=== PATIENT | male | born 1950 | race Caucasian/White ===

== ENCOUNTER 2017-12-03 11:04 | Observation (INO) | payer MEDICARE ==
[~2017-12-03] VITALS: Ht 180.3 cm; Wt 120.0 kg
[2017-12-03 11:09] VITALS: BP 132/76; PULSE 78; RESP 22; TEMP 97.3; O2SAT 98
--- NOTE | 2017-12-03 11:19 | PD ---
HPI Chief Complaint: Respiratory Symptoms Time Seen by Provider: 11:18 Travel History International Travel<30 days: No Contact w/Intl Traveler<30days: No Traveled to known affect area: No History of Present Illness HPI COUGH WITH GREEN SPUTUM, SHORTNESS OF BREATH WITH NAUSEA DECREASED APPETITE SINCE TUESDAY. SEEN BY PCP TUESDAY, RULED OUT FLU ON TUESDAY. About a week prior to the patient had been sick and the patient was evaluated on Tuesday and ruled out for flu. Following that 3 about 3 days afterwards patient started to develop the productive cough of greenish sputum associated with some dyspnea, and subjective fever. No alleviating or aggravating factors. Patient denies any associated factors such as headache, rash, neck pain, chest pain, abdominal pain, back pain, nausea, vomiting or diarrhea. No known drug allergy Past medical history significant with hypercholesterolemia, hypertension, diabetes. PFSH Past Medical History Diabetes: Yes Social History Tobacco Use: No Allergies-Medications (Allergen,Severity, Reaction): Coded Allergies: amoxicillin (Verified Allergy, Unknown, 12/03/17) Reported Meds & Prescriptions Reported Meds & Active Scripts Active Guaifenesin AC Liq (Guaifenesin-Codeine Liq) 100-10 Mg/5 Ml Syrp 10 Ml PO Q6H PRN Levaquin (Levofloxacin) 500 Mg Tablet 500 Mg PO DAILY 5 Days Reported Gabapentin 300 Mg Cap 600 Mg PO TID Victoza Inj (Liraglutide Inj) 18 Mg/3 Ml Pen 1.8 Mg SQ DAILY Lantus Solostar Pen Inj (Insulin Glargine) 300 Unit/3 Ml Pen 50 Units SQ BID IN THE AM & HS Fosinopril (Fosinopril Sodium) 40 Mg Tab 40 Mg PO DAILY Lovastatin 40 Mg Tab 40 Mg PO BID Allopurinol 300 Mg Tab 150 Mg PO TUESDAY Allopurinol 300 Mg Tab 300 Mg PO SUMOTUTHFRSA Take 1 tablet (300mg) daily on Tuesday,Tuesday,Tuesday,,Tuesday and Tuesday Metoprolol Tartrate 50 Mg Tab 50 Mg PO BID Hydrochlorothiazide 25 Mg Tab 25 Mg PO DAILY Farxiga (Dapagliflozin) 10 Mg Tab 10 Mg PO DAILY Glucophage (Metformin HCl) 1,000 Mg Tab 1,000 Mg PO BIDPC Review of Systems General / Constitutional: Positive: Fever, Chills Eyes: No: Visual changes HENT: No: Headaches Cardiovascular: No: Chest Pain or Discomfort Respiratory: Positive: Cough, Night Sweats Gastrointestinal: No: Abdominal Pain Genitourinary: No: Dysuria Musculoskeletal: No: Pain Skin: No Rash Neurologic: No: Weakness Psychiatric: No: Depression Endocrine: No: Polydipsia Hematologic/Lymphatic: No: Easy Bruising Physical Exam Narrative GENERAL: SKIN: Warm and dry. HEAD: Atraumatic. Normocephalic. EYES: Pupils equal and round. No scleral icterus. No injection or drainage. ENT: No nasal bleeding or discharge. Mucous membranes pink and moist. NECK: Trachea midline. No JVD. CARDIOVASCULAR: Regular rate and rhythm. RESPIRATORY: No accessory muscle use. Clear to auscultation. Breath sounds equal bilaterally except for right lower lobe abnormal sounds of wheezing and rhonchi GASTROINTESTINAL: Abdomen soft, non-tender, nondistended. MUSCULOSKELETAL: Extremities without clubbing, cyanosis, or edema. No obvious deformities. NEUROLOGICAL: Awake and alert. No obvious cranial nerve deficits. Motor grossly within normal limits. Five out of 5 muscle strength in the arms and legs. Normal speech. PSYCHIATRIC: Appropriate mood and affect; insight and judgment normal. Data Data Last Documented VS Vital Signs Date Time Temp Pulse Resp B/P (MAP) Pulse Ox O2 Delivery O2 Flow Rate FiO2 12/03/17 11:56 97 12/03/17 11:21 75 16 143/84 (103) Room Air 12/03/17 11:09 97.3 Orders Orders Complete Blood Count With Diff (12/03/17 11:27) Comprehensive Metabolic Panel (12/03/17 11:27) B-Type Natriuretic Peptide (12/03/17 11:27) Act Partial Throm Time (Ptt) (12/03/17 11:27) Prothrombin Time / Inr (Pt) (12/03/17 11:27) Ckmb (Isoenzyme) Profile (12/03/17 11:27) Troponin I (12/03/17 11:27) Urinalysis - C+S If Indicated (12/03/17 11:27) Blood Culture (12/03/17 11:27) Iv Access Insert/Monitor (12/03/17 11:27) Electrocardiogram (12/03/17 11:27) Ecg Monitoring (12/03/17 11:27) Oximetry (12/03/17 11:27) Oxygen Administration (12/03/17 11:27) Chest, Single Ap (12/03/17 11:27) Sodium Chloride 0.9% Flush (Ns Flush) (12/03/17 11:30) Levofloxacin (Levaquin) (12/03/17 11:45) CKMB (12/03/17 11:40) CKMB% (12/03/17 11:40) Admit Order (Ed Use Only) (12/03/17 15:42) Morphine Inj (Morphine Inj) (12/03/17 15:45) Ondansetron Inj (Zofran Inj) (12/03/17 15:45) Al-Mag Hy-Si 40-40-4 Mg/Ml Liq (Mag-Al P (12/03/17 15:45) Lidocaine 2% Viscous (Xylocaine 2% Visco (12/03/17 15:45) Aspirin Chew (Aspirin Chew) (12/03/17 15:45) Labs Laboratory Tests Test 12/03/17 11:40 White Blood Count 7.9 TH/MM3 Red Blood Count 5.27 MIL/MM3 Hemoglobin 15.6 GM/DL Hematocrit 45.0 % Mean Corpuscular Volume 85.3 FL Mean Corpuscular Hemoglobin 29.7 PG Mean Corpuscular Hemoglobin Concent 34.8 % Red Cell Distribution Width 14.6 % Platelet Count 204 TH/MM3 Mean Platelet Volume 8.5 FL Neutrophils (%) (Auto) 70.9 % Lymphocytes (%) (Auto) 18.1 % Monocytes (%) (Auto) 8.4 % Eosinophils (%) (Auto) 1.9 % Basophils (%) (Auto) 0.7 % Neutrophils # (Auto) 5.6 TH/MM3 Lymphocytes # (Auto) 1.4 TH/MM3 Monocytes # (Auto) 0.7 TH/MM3 Eosinophils # (Auto) 0.2 TH/MM3 Basophils # (Auto) 0.1 TH/MM3 CBC Comment DIFF FINAL Differential Comment Prothrombin Time 10.7 SEC Prothromb Time International Ratio 1.1 RATIO Activated Partial Thromboplast Time 25.4 SEC Blood Urea Nitrogen 19 MG/DL Creatinine 1.30 MG/DL Random Glucose 134 MG/DL Total Protein 8.3 GM/DL Albumin 4.0 GM/DL Calcium Level 9.5 MG/DL Alkaline Phosphatase 66 U/L Aspartate Amino Transf (AST/SGOT) 36 U/L Alanine Aminotransferase (ALT/SGPT) 38 U/L Total Bilirubin 0.8 MG/DL Sodium Level 132 MEQ/L Potassium Level 3.8 MEQ/L Chloride Level 99 MEQ/L Carbon Dioxide Level 21.3 MEQ/L Anion Gap 12 MEQ/L Estimat Glomerular Filtration Rate 55 ML/MIN Total Creatine Kinase 126 U/L Creatine Kinase MB 3.4 NG/ML Troponin I LESS THAN 0.02 NG/ML B-Type Natriuretic Peptide 12 PG/ML MDM Medical Decision Making Medical Screen Exam Complete: Yes Emergency Medical Condition: Yes Medical Record Reviewed: Yes Interpretation(s) EKG shows normal sinus rhythm, 66 bpm, nonspecific ST-T wave changes Differential Diagnosis Bronchitis versus pneumonia versus pleural effusion Narrative Course Regulation profile is within normal limits CBC shows no leukocytosis, no anemia, normal platelet count, and no left shift. Normal kidney, normal liver function, normal electrolytes, cardiac enzymes are negative Chest x-ray read by radiologist as no acute disease, there is no evidence of pneumonia. Just prior to discharge the patient came in and started to feel substernal to epigastric region discomfort, pressure, nonradiating, rated as an 8 out of 10, patient was visualized to be diaphoretic, and had a positive Bain sign clenching his fist against his chest. At this point although this was not with the patient originally came in complaining of, the patient was believed to be had be having a cardiac event, so decision was made to have the patient have a repeat EKG and be admitted to chest pain center. Diagnosis Primary Impression: Chest pain rule out [place] Admitting Information Admitting Physician Requests: Observation Patient Instructions: General Instructions Scripts Guaifenesin-Codeine Liq (Guaifenesin AC Liq) 100-10 Mg/5 Ml Syrp 10 ML PO Q6H Y for COUGH, #180 ML 0 Refills Prov: Waqas Campuzano MD 12/03/17 Levofloxacin (Levaquin) 500 Mg Tablet 500 MG PO DAILY for Infection for 5 Days, #5 TAB 0 Refills Prov: Waqas Campuzano MD 12/03/17 Condition: Stable Waqas Campuzano MD Dec 03, 2017 11:19
[2017-12-03 11:21] VITALS: BP 143/84; PULSE 75; RESP 16; O2SAT 95
[2017-12-03] MEDS ORDERED: GLUC1000 PO (11:28)
[2017-12-03] MEDS ORDERED: DAPA1TAB3 PO (11:28)
[2017-12-03] MEDS ORDERED: SODIUM CHLORIDE 0.9% FLUSH 10 ML FLUSH IVF PRN (11:30)
[2017-12-03] MEDS ORDERED: LEVOFLOXACIN 750 MG TAB PO ONE (11:45)
[2017-12-03 11:54] LABS: AUTOMATED NEUTROPHIL # 5.6 TH/MM3 (1.8-7.7); BASOPHIL # 0.1 TH/MM3 (0-0.2); BASOPHIL % 0.7 % (0.0-2.0); EOSINOPHIL # 0.2 TH/MM3 (0-0.4); EOSINOPHIL % 1.9 % (0.0-4.0); HEMOGLOBIN 15.6 GM/DL (13.0-17.0); LYMPH % 18.1 % (9.0-44.0); LYMPHOCYTE # 1.4 TH/MM3 (1.0-4.8); MEAN CELL VOLUME 85.3 FL (80.0-100.0); MEAN CORPUSCULAR HEMOGLOBIN 29.7 PG (27.0-34.0); MEAN CORPUSCULAR HGB CONC 34.8 % (32.0-36.0); MEAN PLATELET VOLUME 8.5 FL (7.0-11.0); MONO % 8.4 % (0.0-8.0); MONOCYTE # 0.7 TH/MM3 (0-0.9); NEUT % 70.9 % (16.0-70.0); PLATELET COUNT 204 TH/MM3 (150-450); RED BLOOD COUNT 5.27 MIL/MM3 (4.50-5.90); RED CELL DISTRIBUTION WIDTH 14.6 % (11.6-17.2); WHITE BLOOD COUNT 7.9 TH/MM3 (4.0-11.0)
--- NOTE | 2017-12-03 11:59 | RADRPT ---
EXAM DATE/TIME: 12/03/2017 11:41 [facility] COMPARISON: No previous studies available for comparison. INDICATIONS : Short of breath. Flu like symptoms. MEDICAL HISTORY : None. SURGICAL HISTORY : None. ENCOUNTER: Initial ACUITY: 1 week PAIN SCORE: 0/10 LOCATION: Bilateral chest FINDINGS: A single view of the chest demonstrates the lungs to be symmetrically aerated without evidence of mas s, infiltrate or effusion. The cardiomediastinal contours are unremarkable. Osseous structures are intact. CONCLUSION: No acute disease. There is no evidence of pneumonia. Emile Nichole MD on December 03, 2017 at 11:57 Board Certified Radiologist. This report was verified electronically.
[2017-12-03 12:06] LABS: INTERNATIONAL NORMALIZED RATIO 1.1 RATIO; PROTHROMBIN TIME - PATIENT 10.7 SEC (9.8-11.6)
[2017-12-03 12:17] LABS: AST (GOT) 36 U/L (15-37); BICARBONATE 21.3 MEQ/L (21.0-32.0); BLOOD UREA NITROGEN 19 MG/DL (7-18); CALCIUM 9.5 MG/DL (8.5-10.1); CHLORIDE 99 MEQ/L (98-107); GLOMERULAR FILTRATION RATE 55 ML/MIN (>89); GLUCOSE,RANDOM 134 MG/DL (74-106); SODIUM (NA) 132 MEQ/L (136-145)
[2017-12-03 12:18] LABS: ALT (GPT) 38 U/L (12-78)
[2017-12-03 12:23] LABS: ALKALINE PHOSPHATASE 66 U/L (45-117); TOTAL BILIRUBIN ADULT 0.8 MG/DL (0.2-1.0); TOTAL PROTEIN 8.3 GM/DL (6.4-8.2); TROPONIN I LESS THAN 0.02 NG/ML (0.02-0.05)
[2017-12-03] MEDS ORDERED: LANTINJ SQ (12:40)
[2017-12-03] MEDS ORDERED: HYDR25TA5 PO (12:40)
[2017-12-03] MEDS ORDERED: LOVA40TA PO (12:40)
[2017-12-03] MEDS ORDERED: GABA300C5 PO (12:40)
[2017-12-03] MEDS ORDERED: FOSI40TA PO (12:40)
[2017-12-03] MEDS ORDERED: ALLO300T2 PO ×2 (12:40)
[2017-12-03] MEDS ORDERED: METO50TA PO (12:40)
[2017-12-03] MEDS ORDERED: VICT18IN SQ (12:40)
[2017-12-03] MEDS ORDERED: GUAISYP4 PO (13:22)
[2017-12-03] MEDS ORDERED: LEVA500T33 PO (13:22)
--- NOTE | 2017-12-03 13:53 | EKG ---
Date Performed: 12/03/2017 Time Performed: 12:06:30 PTAGE: 67 years EKG: Sinus rhythm NONSPECIFIC T-WAVE ABNORMALITY BORDERLINE ECG NO PREVIOUS TRACING DOCTOR: Osiel Echols Interpretating Date/Time 12/03/2017 13:52:06
[2017-12-03] MEDS ORDERED: ALUMINUM/MAGNESIUM/SIMETH 30 ML CUP PO ONE (15:45)
[2017-12-03] MEDS ORDERED: MORPHINE SULFATE 4 MG/ML INJ IV PUSH ONE (15:45)
[2017-12-03] MEDS ORDERED: ONDANSETRON HCL 4 MG/2 ML VIAL IVP ONE (15:45)
[2017-12-03] MEDS ORDERED: LIDOCAINE VISCOUS 2% SOLN 15 ML UDC PO ONE (15:45)
[2017-12-03] MEDS ORDERED: ASPIRIN 81 MG CHEW TAB PO ONE (15:45)
[2017-12-03] MEDS ORDERED: IOHEXOL 350 MG/ML 50 ML BTL (for Cath Lab) OTHER ONE (15:46)
[2017-12-03 16:03] VITALS: BP 157/80; PULSE 72; RESP 30; O2SAT 97
--- NOTE | 2017-12-03 17:04 | HHI.HP ---
HPI Primary Care Physician Amrit Mcfarland MD Chief Complaint Flu like symptoms, nausea, dyspnea History of Present Illness 67 year old male with long standing history of type II diabetes and diabetic neuropathy presents to ER for further evaluation of dyspnea and flu like symptoms. Onset one week ago. Seen and evaluated by his PCP on Tuesday and tested negative for the flu. Endorses productive cough with green sputum. Tuesday developed dyspnea and epigastric discomfort, described as "a gas bubble." Came to ER for further evaluation and was going to be discharge home with antibiotics and guaifenesin this afternoon, before developing epigastric discomfort, dyspnea, and became diaphoresis therefore ER MD recommended admission to [facility]. Patient endorses intermittent epigastric pain and dyspnea since Tuesday. Location epigastric area. Characterized as ingestion or "gas bubble." Reports "feels like if I could belch I would feel better." Associated symptoms of dyspnea. No nausea, vomiting, or diaphoresis. Duration 5 minutes of less. Denies ever having chest pain or pressure. No known precipitating. Took Zantac yesterday. Zantac relieved symptoms, allowing him to eat. Review of Systems General: Flu like symptoms since Tuesday with malaise. Rapid flu test completed Tuesday at PCP office and was negative. Decrease appetite. HEENT: No BOOGIE, no vision changes, no dysphasia CV: As stated above. No current CP, pressure, or tightness. RESP: Productive cough, reports green sputum. Intermittent dyspnea since Tuesday. No wheeze, hemoptysis, or history of asthma. Diagnosed in ER with Acute Bronchitis. GI: Nausea improved. No vomiting, bowel changes, diarrhea, pain. Decreased appetite. History of GERD. Took Zantac yesterday with relief of symptoms, allowing him to eat. : No dysuria, urgency, frequency EXT: No lower leg edema, no paraesthesias MS: No discomfort or change in ROM NEURO: No difficulty with balance, LOC, motor/sensory deficits PSYCH: No anxiety, depression SKIN: No rashes, no concerning lesions Past Family Social History Allergies: Coded Allergies: amoxicillin (Verified Allergy, Unknown, 12/03/17) Past Medical History Type 2 diabetes, diabetic neuropathy, GERD, gout Past Surgical History Left ankle surgery, left elbow surgery Reported Medications Reported Meds & Active Scripts Active Guaifenesin AC Liq (Guaifenesin-Codeine Liq) 100-10 Mg/5 Ml Syrp 10 Ml PO Q6H PRN Levaquin (Levofloxacin) 500 Mg Tablet 500 Mg PO DAILY 5 Days Reported Gabapentin 300 Mg Cap 600 Mg PO TID Victoza Inj (Liraglutide Inj) 18 Mg/3 Ml Pen 1.8 Mg SQ DAILY Lantus Solostar Pen Inj (Insulin Glargine) 300 Unit/3 Ml Pen 50 Units SQ BID IN THE AM & HS Fosinopril (Fosinopril Sodium) 40 Mg Tab 40 Mg PO DAILY Lovastatin 40 Mg Tab 40 Mg PO BID Allopurinol 300 Mg Tab 150 Mg PO TUESDAY Allopurinol 300 Mg Tab 300 Mg PO SUMOTUTHFRSA Take 1 tablet (300mg) daily on Tuesday,Tuesday,Tuesday,,Tuesday and Tuesday Metoprolol Tartrate 50 Mg Tab 50 Mg PO BID Hydrochlorothiazide 25 Mg Tab 25 Mg PO DAILY Farxiga (Dapagliflozin) 10 Mg Tab 10 Mg PO DAILY Glucophage (Metformin HCl) 1,000 Mg Tab 1,000 Mg PO BIDPC Active Ordered Medications Current Medications Medications (Trade) Dose Ordered Sig/Epifanio Route Start Time Stop Time Status Last Admin (NS Flush) 2 ml UNSCH PRN IVF 12/03/17 11:30 Family History Noncontributory for early onset cardiovascular disease Social History Known diabetes. Appropriately taking statin and JAME inhibitor. No known CAD. Former smoker quitting 30 years ago. . Retired. Past cardiac testing None Physical Exam Vital Signs Vital Signs Date Time Temp Pulse Resp B/P (MAP) Pulse Ox O2 Delivery O2 Flow Rate FiO2 12/03/17 16:32 17 12/03/17 16:03 72 30 157/80 (105) 97 2.00 12/03/17 11:56 97 12/03/17 11:21 75 16 143/84 (103) 95 Room Air 12/03/17 11:21 22 96 Room Air 12/03/17 11:09 97.3 78 22 132/76 (94) 98 Physical Exam GENERAL: Alert WN, WD, NAD, pleasant, moderately obese, male HEAD: NC, AT EYES: Sclera clear, conjunctiva without injection, pupils equal and round ENT: Mucous membranes pink and moist NECK: Supple, no masses, trachea midline CV: RRR, without murmur, rub, gallop, no JVD, S1-S2 no S3-S4. No carotid bruits. RESP: Clear lungs throughout bilateral, no crackles, wheeze, rhonchi, symmetrical chest rise, nonlabored, able to speak in full sentences ABD: Soft, NT, ND, no masses, positive bowel tones, obese EXT: Pulses +24, no dependent edema MS: Normal tone 4 extremities, no obvious deformities, full range of motion NEURO: CN II through CN XII grossly intact, motor strength 5/5 PSYCH: A+O 3, pleasant affect, appropriate speech, mood, insight and judgment SKIN: Normal turgor, normal texture, no lesions, no rashes, brisk cap refill, even hair distribution Laboratory Laboratory Tests Test 12/03/17 11:40 White Blood Count 7.9 Red Blood Count 5.27 Hemoglobin 15.6 Hematocrit 45.0 Mean Corpuscular Volume 85.3 Mean Corpuscular Hemoglobin 29.7 Mean Corpuscular Hemoglobin Concent 34.8 Red Cell Distribution Width 14.6 Platelet Count 204 Mean Platelet Volume 8.5 Neutrophils (%) (Auto) 70.9 Lymphocytes (%) (Auto) 18.1 Monocytes (%) (Auto) 8.4 Eosinophils (%) (Auto) 1.9 Basophils (%) (Auto) 0.7 Neutrophils # (Auto) 5.6 Lymphocytes # (Auto) 1.4 Monocytes # (Auto) 0.7 Eosinophils # (Auto) 0.2 Basophils # (Auto) 0.1 CBC Comment DIFF FINAL Differential Comment Prothrombin Time 10.7 Prothromb Time International Ratio 1.1 Activated Partial Thromboplast Time 25.4 Blood Urea Nitrogen 19 Creatinine 1.30 Random Glucose 134 Total Protein 8.3 Albumin 4.0 Calcium Level 9.5 Alkaline Phosphatase 66 Aspartate Amino Transf (AST/SGOT) 36 Alanine Aminotransferase (ALT/SGPT) 38 Total Bilirubin 0.8 Sodium Level 132 Potassium Level 3.8 Chloride Level 99 Carbon Dioxide Level 21.3 Anion Gap 12 Estimat Glomerular Filtration Rate 55 Total Creatine Kinase 126 Creatine Kinase MB 3.4 Troponin I LESS THAN 0.02 B-Type Natriuretic Peptide 12 Date/Time Source Procedure Growth Status 12/03/17 11:41 Blood Peripheral Aerobic Blood Culture Pending Received 12/03/17 11:41 Blood Peripheral Anaerobic Blood Culture Pending Received Result Diagram: 12/03/17 1140 12/03/17 1140 Imaging Last 48 hours Impressions Chest X-Ray 12/03/17 1127 Signed Impressions: Service Date/Time: Sunday, December 03, 2017 11:41 - CONCLUSION: No acute disease. There is no evidence of pneumonia. Emile Nichole MD Course EKG Normal sinus rhythm, nonspecific T-wave changes [place] VTE Risk Assessment Caprini VTE Risk Assessment: Mod/High Risk (score >= 2) Caprini Risk Assessment Model Point Value = 1 Point Value = 2 Point Value = 3 Point Value = 5 Age 41-60 Minor surgery BMI > 25 kg/m2 Swollen legs Varicose veins or History of unexplained or recurrent spontaneous Oral contraceptives or hormone replacement Sepsis (< 1 month) Serious lung disease, including pneumonia (< 1 month) Abnormal pulmonary function Acute myocardial infarction Congestive heart failure (< 1 month) History of inflammatory bowel disease Medical patient at bed rest Age 61-74 Arthroscopic surgery Major open surgery (> 45 min) Laparoscopic surgery (> 45 min) Malignancy Confined to bed (> 72 hours) Immobilizing plaster cast Central venous access Age >= 75 History of VTE Family history of VTE Factor V Leiden Prothrombin 42201G Lupus anticoagulant Anticardiolipin antibodies Elevated serum homocysteine Heparin-induced thrombocytopenia Other congenital or acquired thrombophilia Stroke (< 1 month) Elective arthroplasty Hip, pelvis, or leg fracture Acute spinal cord injury (< 1 month) Prophylaxis Regimen Total Risk Factor Score Risk Level Prophylaxis Regimen 0-1 Low Early ambulation 2 Moderate Order ONE of the following: *Sequential Compression Device (SCD) *Heparin 5000 units SQ BID 3-4 Higher Order ONE of the following medications: *Heparin 5000 units SQ TID *Enoxaparin/Lovenox 40 mg SQ daily (WT < 150 kg, CrCl > 30 mL/min) *Enoxaparin/Lovenox 30 mg SQ daily (WT < 150 kg, CrCl > 10-29 mL/min) *Enoxaparin/Lovenox 30 mg SQ BID (WT < 150 kg, CrCl > 30 mL/min) AND/OR *Sequential Compression Device (SCD) 5 or more Highest Order ONE of the following medications: *Heparin 5000 units SQ TID (Preferred with Epidurals) *Enoxaparin/Lovenox 40 mg SQ daily (WT < 150 kg, CrCl > 30 mL/min) *Enoxaparin/Lovenox 30 mg SQ daily (WT < 150 kg, CrCl > 10-29 mL/min) *Enoxaparin/Lovenox 30 mg SQ BID (WT < 150 kg, CrCl > 30 mL/min) AND *Sequential Compression Device (SCD) Assessment and Plan Assessment and Plan #1 Chest pain-admitted chest pain center. Ruled out with 3 sets of EKGs, cardiac enzymes, and monitored on telemetry overnight. Seen and evaluated by Dr. Brent Marino. If ruled out plan is to complete Lexiscan in a.m. If unremarkable, discharge home with follow-up with PCP. Patient and agreeable to plan of care and verbalized understanding. #2 History of diabetes type II-hold home insulin and anti-glycemic at this time , NPO after midnight. SSI moderate dose coverage protocol. Continue JAME and statin therapies. #3 GERD-received GI cocktail in ER with relief, begin Protonix 40 mg daily #4 Acute Bronchitis-continue levofloxacin and guaifenesin/codeine, home prescriptions previously written by ER MD #5 History of neuropathy-continue gabapentin, discussed speaking with PCP pankajing Lizette Orlando Dec 03, 2017 17:04
[2017-12-03] MEDS ORDERED: guaiFENesin/CODEINE SYRUP 200 MG/20 MG/10 ML CUP PO PRN (17:15)
[2017-12-03] MEDS ORDERED: NITROGLYCERIN 0.4 MG SL 25 TABS/BTL SL PRN (17:15)
[2017-12-03] MEDS ORDERED: GLUCAGON 1 MG/ML VIAL OTHER PRN (17:15)
[2017-12-03] MEDS ORDERED: ACETAMINOPHEN 500 MG CPLT PO PRN (17:15)
[2017-12-03] MEDS ORDERED: DEXTROSE 50% IN WATER 50 ML VIAL(D50) IV PUSH PRN (17:15)
[2017-12-03] MEDS ORDERED: RESP: ALBUTEROL 2.5 MG/3 ML NEB (PRN) NEB (17:15)
[2017-12-03] MEDS: GABAPENTIN 300 MG CAP PO SCH (18:00)
[2017-12-03 18:19] LABS: TROPONIN I LESS THAN 0.02 NG/ML (0.02-0.05)
[2017-12-03] MEDS ORDERED: RANITIDINE HCL SYRUP 150 MG/10 ML UDC PO ONE (19:00)
[2017-12-03] MEDS: PANTOPRAZOLE SOD 40 MG DELAYED RELEASE TAB PO SCH (19:00)
[2017-12-03] MEDS: INSULIN ASPART SUPPLEMENTAL SCALE SQ SCH (20:30)
[2017-12-03 20:41] VITALS: BP 132/71; PULSE 92; RESP 18; TEMP 97.9; O2SAT 94
[2017-12-03 20:51] LABS: TROPONIN I LESS THAN 0.02 NG/ML (0.02-0.05)
[2017-12-03] MEDS: SODIUM CHLORIDE 0.9% FLUSH 10 ML FLUSH IV FLUSH SCH (22:29)
[2017-12-03] MEDS: PRAVASTATIN SOD 40 MG TAB PO SCH (22:29)
[2017-12-03] MEDS: METOPROLOL TARTRATE 50 MG TAB PO SCH (22:30)
[2017-12-03 23:05] VITALS: BP 131/77; PULSE 72; RESP 18; TEMP 98.1; O2SAT 97
[2017-12-04] VITALS (11 sets, daily range): BP systolic 97–131; BP diastolic 56–82; PULSE 65–85; RESP 18–36; TEMP 97.6–98.2; O2SAT 96–100
[2017-12-04] MEDS: INSULIN ASPART SUPPLEMENTAL SCALE SQ SCH ×4 (08:30→21:00)
[2017-12-04] MEDS: SODIUM CHLORIDE 0.9% FLUSH 10 ML FLUSH IV FLUSH SCH ×2 (08:40→21:02)
[2017-12-04] MEDS: ONDANSETRON HCL 4 MG/2 ML VIAL IV PUSH PRN ×2 (08:41→11:54)
[2017-12-04] MEDS: GABAPENTIN 300 MG CAP PO SCH ×3 (08:41→17:54)
[2017-12-04] MEDS: ASPIRIN 325 MG TAB PO SCH (08:41)
[2017-12-04] MEDS: ALLOPURINOL 300 MG TAB PO SCH (08:42)
[2017-12-04] MEDS: PRAVASTATIN SOD 40 MG TAB PO SCH ×2 (08:42→21:16)
[2017-12-04] MEDS: PANTOPRAZOLE SOD 40 MG DELAYED RELEASE TAB PO SCH (08:42)
[2017-12-04] MEDS: METOPROLOL TARTRATE 50 MG TAB PO SCH (08:43)
[2017-12-04] MEDS: LEVOFLOXACIN 500 MG TAB PO SCH (08:45)
[2017-12-04] MEDS ORDERED: LISINOPRIL 20 MG TAB PO SCH (09:00)
[2017-12-04] MEDS ORDERED: HYDROCHLOROTHIAZIDE 25 MG TAB PO SCH (09:00)
--- NOTE | 2017-12-04 11:32 | EKG ---
Date Performed: 12/03/2017 Time Performed: 20:06:25 PTAGE: 67 years EKG: Sinus rhythm WITH FIRST DEGREE AV BLOCK NONSPECIFIC ST & T-WAVE ABNORMALITY ABNORMAL ECG INTERPRETATION BASED ON A DEFAULT AGE OF 40 YEARS PREVIOUS TRACING : 12/03/2017 17.49 Since previous tracing, no significant change noted DOCTOR: Brent Marino Interpretating Date/Time 12/04/2017 11:31:31
--- NOTE | 2017-12-04 11:38 | EKG ---
Date Performed: 12/03/2017 Time Performed: 17:49:40 PTAGE: 67 years EKG: Sinus rhythm MINIMAL VOLTAGE CRITERIA FOR LVH, CONSIDER NORMAL VARIANT NONSPECIFIC ST & T-WAVE ABNORMALITY BORDER LINE ECG PREVIOUS TRACING : 12/03/2017 12.06 Since previous tracing, no significant change noted DOCTOR: Brent Marino Interpretating Date/Time 12/04/2017 11:36:04
[2017-12-04] MEDS ORDERED: LORazepam 2 MG/ML VIAL IV PUSH ONE (12:30)
[2017-12-04] MEDS ORDERED: REGADENOSON INJ 0.4 MG/5 ML SYR ONE (14:14)
--- NOTE | 2017-12-04 15:08 | RADRPT ---
EXAM DATE/TIME: 12/04/2017 13:59 [facility] COMPARISON: No previous studies available for comparison. INDICATIONS : Chest pain with dyspnea and diaphoresis. Angina. DOSE: 35 mCi Tc99m Myoview at stress. 11 mCi Tc99m Myoview at rest. 0.4 mg Lexiscan STRESS SYMPTOMS: None noted. EJECTION FRACTION: 66% MEDICAL HISTORY : Diabetes mellitus type 2. Gastroesophageal reflux disease. SURGICAL HISTORY : Left ankle and elbow. ENCOUNTER: Initial ACUITY: 1 day PAIN SCALE: 4/10 LOCATION: Substernal chest TECHNIQUE: The patient underwent pharmacologic stress with infusion of prescribed dose. Continuous ECG tracing was monitored during stress. Gated SPECT imaging was performed after stress and conventional SPECT i maging was performed at rest. The examination was performed on a SPECT/CT scanner, both attenuation and non-corrected datasets were reviewed. FINDINGS: DISTRIBUTION: The maximum perfused segment at stress is in the anterior wall. PERFUSION STUDY: A stress-induced perfusion defect is identified in the inferior wall which completely reperfuses at r est. GATED STUDY: There is intact wall motion and thickening without hypokinetic or dyskinetic segments. CONCLUSION: 1. Reversible stress-induced perfusion abnormality involving the inferior wall. 2. No evidence of fixed perfusion abnormalities. 3. Well-preserved left ventricular function and ejection fraction. RISK CATEGORY: Low (<1% Annual Mortality Rate) Sarkis Crooks MD on December 04, 2017 at 15:04 Board Certified Radiologist. This report was verified electronically.
--- NOTE | 2017-12-04 17:53 | HHI.PR ---
Subjective Remarks Follow-up on patient with chest pain. Patient seen and examined. Patient reports episode of "gas-like" chest pain earlier this morning with associated diaphoresis, nausea and shortness of breath. Reports he feels well now. He denies any personal or family medical history heart disease. He has not had any previous cardiac testing. He has a history of tobacco use but quit 30 years ago. He is diabetic. States he does get reflux sometimes after certain foods but reports this pain feels different. He denies any recent illness. Denies any fever or chills. He denies any abdominal pain. States he has chronic numbness/tingling in the hands and feet secondary to diabetic neuropathy. Objective Vitals Vital Signs Date Time Temp Pulse Resp B/P (MAP) Pulse Ox O2 Delivery O2 Flow Rate FiO2 12/04/17 16:15 98.2 83 18 97/56 (70) 98 12/04/17 13:23 65 12/04/17 12:33 97.8 70 20 131/82 (98) 99 12/04/17 12:15 100 21 12/04/17 04:00 82 12/04/17 03:59 77 36 108/60 (76) 98 12/04/17 02:37 65 20 115/61 (79) 97 12/04/17 00:38 97.6 74 26 121/61 (81) 99 12/04/17 00:28 97 Nasal Cannula 2.00 12/03/17 23:05 98.1 72 18 131/77 (95) 97 12/03/17 20:41 97.9 92 18 132/71 (91) 94 Result Diagram: 12/03/17 1140 12/03/17 1140 Imaging Last Impressions Myocardial Perfusion Scan Nuc Med 12/04/17 0000 Signed Impressions: Service Date/Time: Monday, December 04, 2017 13:59 - CONCLUSION: 1. Reversible stress-induced perfusion abnormality involving the inferior wall. 2. No evidence of fixed perfusion abnormalities. 3. Well-preserved left ventricular function and ejection fraction. RISK CATEGORY: Low (<1%% Annual Mortality Rate) Sarkis Crooks MD Chest X-Ray 12/03/17 1127 Signed Impressions: Service Date/Time: Sunday, December 03, 2017 11:41 - CONCLUSION: No acute disease. There is no evidence of pneumonia. Emile Nichole MD Objective Remarks GENERAL: Well-nourished, well-developed male patient in NAD. Awake and alert. SKIN: Warm and dry. No rash. HEAD: Normocephalic. Atraumatic. EYES: Pupils equal and round. No scleral icterus. No injection or drainage. ENT: No nasal bleeding or discharge. Mucous membranes pink and moist. NECK: Supple. Trachea midline. CARDIOVASCULAR: Regular rate and rhythm. S1, S2 noted. No murmur appreciated. RESPIRATORY: No accessory muscle use. Clear to auscultation. Breath sounds equal bilaterally. GASTROINTESTINAL: Abdomen soft, non-tender, nondistended. Normoactive bowel sounds x4. MUSCULOSKELETAL: No obvious deformities. Extremities without clubbing, cyanosis , or edema. NEUROLOGICAL: Awake and alert. No obvious cranial nerve deficits. Motor grossly within normal limits. 5/5 muscle strength in bilateral upper and lower extremities. Normal speech. PSYCHIATRIC: Appropriate mood and affect; insight and judgment normal. Procedures 12/04 MPS, 1. Reversible stress-induced perfusion abnormality involving the inferior wall. 2. No evidence of fixed perfusion abnormalities. 3. Well-preserved left ventricular function and ejection fraction. Medications and IVs Current Medications Medications (Trade) Dose Ordered Sig/Epifanio Route Start Time Stop Time Status Last Admin (NS Flush) 2 ml UNSCH PRN IVF 12/03/17 11:30 (NS Flush) 2 ml BID IV FLUSH 12/03/17 21:00 12/04/17 08:40 (Tylenol) 500 mg Q4H PRN PO 12/03/17 17:15 (Zofran Inj) 4 mg Q6H PRN IV PUSH 12/03/17 17:15 12/04/17 11:54 (Nitrostat Sl) 0.4 mg Q5M PRN SL 12/03/17 17:15 (Aspirin) 325 mg DAILY PO 12/04/17 09:00 12/04/17 08:41 (Levaquin) 500 mg DAILY PO 12/04/17 09:00 (Robitussin Ac 200-20 Mg/10 ml Liq) 10 ml Q6H PRN PO 12/03/17 17:15 (Albuterol Neb) 2.5 mg Q2HR NEB PRN NEB 12/03/17 17:15 12/04/17 12:10 (Zyloprim) 300 mg SuMoTuThFrSa@0900 PO 12/04/17 09:00 12/04/17 08:42 (Prinivil) 40 mg DAILY PO 12/04/17 09:00 12/04/17 08:43 (Neurontin) 600 mg TID PO 12/03/17 18:00 (Hydrodiuril) 25 mg DAILY PO 12/04/17 09:00 12/04/17 08:42 (Pravachol) 40 mg BID PO 12/03/17 21:00 12/04/17 08:42 (Lopressor) 50 mg BID PO 12/03/17 21:00 12/03/17 22:30 (D50w (Vial) Inj) 50 ml UNSCH PRN IV PUSH 12/03/17 17:15 (Glucagon Inj) 1 mg UNSCH PRN OTHER 12/03/17 17:15 (NovoLOG SUPPLEMENTAL SCALE) 1 ACHS SLIDING SCALE SQ 12/03/17 21:00 (Protonix) 40 mg DAILY PO 12/03/17 19:00 12/04/17 08:42 (Nitroglycerin 2% Oint) 0.5 inch Q6HR TOPICAL 12/04/17 18:00 A/P Assessment and Plan 67 yo male with DM admitted with complaints of chest pain and shortness of breath. Chest pain -troponins negative x 3 -s/p MPS showing reversible stress-induced perfusion abnormality involving the inferior wall -Cardiology following, plan for cardiac cath in am -NPO after MN -continuous cardiac monitoring -continue on BB, ACEI and statin -Aspirin 325mg daily -Continue nitroglycerin HTN, now hypotensive on NTG -On metoprolol 50 mg twice a day, fosinopril 40 mg daily, hydrochlorothiazide 25 mg daily -Hold antihypertensives for now secondary to low BP. -Continue to monitor BP and adjust treatment accordingly DM Diabetic neuropathy -hold home dose of Metformin -hold long acting insulin for now as patient NPO after MN -accucheck -ISS -Continue on gabapentin -obtain A1c level Acute bronchitis -Continue on Levaquin -Duonebs as needed Unsteady gait secondary to diabetic neuropathy -PT eval/tx Gout -Continue on Allopurinol GERD -PPI DVT prophylaxis -SCD/DAVID hose Discharge Planning Pending clinical workup and cardiology clearance Jemima Rollins Dec 04, 2017 17:53
[2017-12-04] MEDS: NITROGLYCERIN 2% OINT 1 GM PACKET TOPICAL SCH (19:07)
[2017-12-05] VITALS (8 sets, daily range): BP systolic 102–123; BP diastolic 55–62; PULSE 67–85; RESP 18–20; TEMP 97.7–98.4; O2SAT 94–98
[2017-12-05] MEDS: NITROGLYCERIN 2% OINT 1 GM PACKET TOPICAL SCH ×2 (00:54→06:51)
[2017-12-05 05:38] LABS: BICARBONATE 23.4 MEQ/L (21.0-32.0); CALCIUM 9.3 MG/DL (8.5-10.1); CREATININE 2.12 MG/DL (0.60-1.30)
[2017-12-05] MEDS: INSULIN ASPART SUPPLEMENTAL SCALE SQ SCH ×4 (08:00→22:50)
--- NOTE | 2017-12-05 08:15 | MB ---
cc: Fly Aguilera MD DATE: 12/05/2017 INDICATION: Chest pain. HISTORY OF PRESENT ILLNESS: This is a 67-year-old gentleman without significant past medical history for heart disease, but does have diabetes. He presented to the emergency department with atypical type chest discomfort or epigastric discomfort which he describes as more of a gas bubble relieved with belching. No exertional symptoms. He underwent stress test, which showed a small inferior defect. We are consulted for further recommendations as above. PAST MEDICAL HISTORY: Type 2 diabetes, diabetic neuropathy, GERD, gout. MEDICATIONS: 1. Gabapentin. 2. Lantus. 3. Lisinopril. 4. Lovastatin. 5. Allopurinol. 6. Metoprolol. 7. Hydrochlorothiazide. 8. Glucophage. FAMILY HISTORY: Denies any family history of early coronary artery disease or sudden cardiac . SOCIAL HISTORY: Quit smoking 30 years ago. Denies any alcohol or drug use. REVIEW OF SYSTEMS: A 12-point review of system was performed and is negative unless otherwise as noted in the history of present illness. PHYSICAL EXAMINATION: VITAL SIGNS: Temperature is 98, pulse 73, blood pressure 102/55 mmHg. GENERAL: Alert and oriented x 3 in no acute distress. HEENT: Exam shows pupils reactive to light and accommodation. Extraocular movements are intact. No elevation of jugular venous distention. No thyromegaly. No lymphadenopathy, no carotid bruits. LUNGS: Clear to auscultation bilaterally. CARDIOVASCULAR: Regular rate and rhythm without murmurs, rubs or gallops. ABDOMEN: Nontender, nondistended with good bowel sounds. No hepatosplenomegaly. EXTREMITIES: Show no clubbing, cyanosis or edema. Good peripheral pulses. NEUROLOGIC: Cranial nerves intact. Motor, sensory grossly intact. LABORATORY DATA: WBC 7.9, hemoglobin 15.6, platelet count is 204. INR is 1.1. Sodium 134, potassium 3.7, BUN is 35, creatinine is 2.12, up from 1.30 on 12/03/2017. ASSESSMENT AND PLAN: 1. Atypical chest pain. 2. Abnormal stress test. 3. Acute renal failure. 4. Diabetes. PLAN: Patient's symptoms are somewhat atypical. I looked at his stress test, he has a small to moderate sized inferior wall defect. He denies any eduardo chest pain at this time. We will discontinue the nitro patch as it has given him quite a headache. I suspect that he has not had much hydration in the setting of diuretic use with hydrochlorothiazide. We will hold his JAME inhibitors, hydrochlorothiazide and nitroglycerin. I am going to hydrate him here today. I will see how his kidneys do and then we could discuss the consideration for either cardiac catheterization or outpatient followup. MD ROWAN Hedrick/VERITO , 07:55 AM , 08:13 AM
[2017-12-05] MEDS: ASPIRIN 325 MG TAB PO SCH (08:59)
[2017-12-05] MEDS: PANTOPRAZOLE SOD 40 MG DELAYED RELEASE TAB PO SCH (08:59)
[2017-12-05] MEDS: LEVOFLOXACIN 500 MG TAB PO SCH (08:59)
[2017-12-05] MEDS: PRAVASTATIN SOD 40 MG TAB PO SCH ×2 (08:59→22:50)
[2017-12-05] MEDS: GABAPENTIN 300 MG CAP PO SCH ×3 (08:59→21:00)
[2017-12-05] MEDS: SODIUM CHLORIDE 0.9% FLUSH 10 ML FLUSH IV FLUSH SCH ×2 (09:00→21:00)
[2017-12-05] MEDS: SODIUM CHLOR 0.9% 1000 ML INJ 1,000 ML IV SCH ×2 (09:07→14:31)
[2017-12-05] MEDS: ALLOPURINOL 300 MG TAB PO SCH (09:07)
--- NOTE | 2017-12-05 09:07 | EKG ---
Date Performed: 12/04/2017 Time Performed: 12:24:41 PTAGE: 67 years EKG: Sinus rhythm MINIMAL VOLTAGE CRITERIA FOR LVH, CONSIDER NORMAL VARIANT NONSPECIFIC ST & T-WAVE ABNORMALITY BORDER LINE ECG Since the PREVIOUS TRACING , no significant change noted DOCTOR: Julia Jara Interpretating Date/Time 12/05/2017 09:05:24
--- NOTE | 2017-12-05 10:19 | TR ---
Date Performed: 12/04/2017 Time Performed: 14:23:15 DOCTOR: Osiel Echols DRUG LIST: CLINICAL HISTORY: REASON FOR TEST: CHEST PAIN REASON FOR ENDING: OBSERVATION: CONCLUSION: COMMENTS: Lexiscan stress test was performed under standard four minute protocol. Radionuclide was injected one minute prior to ending the test. No electrocardiographic abormalities were present t o suggest ischemia. Nuclear imaging and interpretation are pending.
--- NOTE | 2017-12-05 12:06 | RADRPT ---
EXAM DATE/TIME: 12/05/2017 11:34 [facility] COMPARISON: No previous studies available for comparison. INDICATIONS : Increased BUN/Creatinine. MEDICAL HISTORY : Hypercholesterolemia. Hypertension. Diabetes. SURGICAL HISTORY : Surgery on left arm and leg due to trama. ENCOUNTER: Initial ACUITY: 1 day PAIN SCORE: 0/10 LOCATION: Bilateral flank MEASUREMENTS: RIGHT KIDNEY: 11.1 x 5.5 x 5.2 cm LEFT KIDNEY: 11.2 x 4.9 x 4.3 cm FINDINGS: RIGHT KIDNEY: Renal cortex is normal in thickness and echotexture. No hydronephrosis, stone, or mass. LEFT KIDNEY: Renal cortex is normal in thickness and echotexture. 2.9 cm simple cyst of the mid zone. No hydronep hrosis, stone, or solid mass. BLADDER: Within normal limits given the degree of distension. CONCLUSION: No obstruction or other acute abnormality demonstrated. Benign cyst on the left. Derrick Shane MD on December 05, 2017 at 12:04 Board Certified Radiologist. This report was verified electronically.
--- NOTE | 2017-12-05 13:34 | HHI.PR ---
Subjective Remarks Follow-up patient with chest pain. Patient seen and examined. Patient denies any recurrence of chest pain. He denies any shortness of breath, diaphoresis, palpitations, nausea or vomiting. Denies any abdominal pain. He denies any dizziness or lightheadedness. He denies any hematuria or dysuria. Objective Vitals Vital Signs Date Time Temp Pulse Resp B/P (MAP) Pulse Ox O2 Delivery O2 Flow Rate FiO2 12/05/17 11:22 98.0 72 19 105/55 (72) 94 12/05/17 08:52 97.7 67 19 123/60 (81) 98 12/05/17 08:00 85 12/05/17 05:09 73 18 102/55 (71) 98 12/04/17 20:10 98.2 85 18 105/70 (82) 96 12/04/17 19:26 97 12/04/17 16:15 98.2 83 18 97/56 (70) 98 I/O 12/04/17 12/04/17 12/04/17 12/05/17 12/05/17 12/05/17 06:59 14:59 22:59 06:59 14:59 22:59 Intake Total 250 ml Balance 250 ml Intake Oral 250 ml Result Diagram: 12/03/17 1140 12/05/17 0501 Imaging Last Impressions Renal Ultrasound 12/05/17 0000 Signed Impressions: Service Date/Time: Tuesday, December 05, 2017 11:34 - CONCLUSION: No obstruction or other acute abnormality demonstrated. Benign cyst on the left. Derrick Shane MD Myocardial Perfusion Scan Nuc Med 12/04/17 0000 Signed Impressions: Service Date/Time: Monday, December 04, 2017 13:59 - CONCLUSION: 1. Reversible stress-induced perfusion abnormality involving the inferior wall. 2. No evidence of fixed perfusion abnormalities. 3. Well-preserved left ventricular function and ejection fraction. RISK CATEGORY: Low (<1%% Annual Mortality Rate) Sarkis Crooks MD Chest X-Ray 12/03/17 1127 Signed Impressions: Service Date/Time: Sunday, December 03, 2017 11:41 - CONCLUSION: No acute disease. There is no evidence of pneumonia. Emile Nichole MD Objective Remarks GENERAL: Well-nourished, well-developed male patient in NAD. Sitting up in bed. Awake and alert. SKIN: Warm and dry. No rash. HEAD: Normocephalic. Atraumatic. EYES: EOMI. No scleral icterus. No injection or drainage. ENT: No nasal bleeding or discharge. Mucous membranes pink and moist. NECK: Supple. Trachea midline. CARDIOVASCULAR: Regular rate and rhythm. S1, S2 noted. No murmur appreciated. RESPIRATORY: No accessory muscle use. Clear to auscultation. Breath sounds equal bilaterally. GASTROINTESTINAL: Abdomen soft, non-tender, nondistended. Normoactive bowel sounds x4. MUSCULOSKELETAL: No obvious deformities. Extremities without clubbing, cyanosis , or edema. NEUROLOGICAL: Awake and alert. No obvious cranial nerve deficits. Motor grossly within normal limits. 5/5 muscle strength in bilateral upper and lower extremities. Normal speech. PSYCHIATRIC: Appropriate mood and affect; insight and judgment normal. Procedures 12/04 MPS, 1. Reversible stress-induced perfusion abnormality involving the inferior wall. 2. No evidence of fixed perfusion abnormalities. 3. Well-preserved left ventricular function and ejection fraction. Medications and IVs Current Medications Medications (Trade) Dose Ordered Sig/Epifanio Route Start Time Stop Time Status Last Admin (NS Flush) 2 ml UNSCH PRN IVF 12/03/17 11:30 (NS Flush) 2 ml BID IV FLUSH 12/03/17 21:00 12/05/17 09:00 (Tylenol) 500 mg Q4H PRN PO 12/03/17 17:15 (Zofran Inj) 4 mg Q6H PRN IV PUSH 12/03/17 17:15 12/04/17 11:54 (Nitrostat Sl) 0.4 mg Q5M PRN SL 12/03/17 17:15 (Aspirin) 325 mg DAILY PO 12/04/17 09:00 12/05/17 08:59 (Levaquin) 500 mg DAILY PO 12/04/17 09:00 12/05/17 08:59 (Robitussin Ac 200-20 Mg/10 ml Liq) 10 ml Q6H PRN PO 12/03/17 17:15 (Albuterol Neb) 2.5 mg Q2HR NEB PRN NEB 12/03/17 17:15 12/04/17 12:10 (Zyloprim) 300 mg SuMoTuThFrSa@0900 PO 12/04/17 09:00 Future Hold 12/05/17 09:07 (Neurontin) 600 mg TID PO 12/03/17 18:00 12/05/17 08:59 (Pravachol) 40 mg BID PO 12/03/17 21:00 12/05/17 08:59 (Lopressor) 50 mg BID PO 12/03/17 21:00 Future Hold 12/03/17 22:30 (D50w (Vial) Inj) 50 ml UNSCH PRN IV PUSH 12/03/17 17:15 (Glucagon Inj) 1 mg UNSCH PRN OTHER 12/03/17 17:15 (NovoLOG SUPPLEMENTAL SCALE) 1 ACHS SLIDING SCALE SQ 12/03/17 21:00 (Protonix) 40 mg DAILY PO 12/03/17 19:00 12/05/17 08:59 Sodium Chloride 1,000 ml @ 150 mls/hr Q6H40M IV 12/05/17 07:51 12/05/17 19:50 12/05/17 09:07 A/P Assessment and Plan 67 yo male with DM admitted with complaints of chest pain and shortness of breath. Acute kidney injury -Creatinine bumped up to 2.12 from 1.30 -Obtain UA and renal ultrasound -Avoid nephrotoxic agents. Hold home dose of HCTZ, ACEI and Allopurinol for now. -IV fluid hydration -Repeat BMP in a.m. Chest pain -troponins negative x 3 -s/p MPS showing reversible stress-induced perfusion abnormality involving the inferior wall -Cardiology following, plan for cardiac cath today postponed secondary to acute renal failure. Nitroglycerin discontinued. ACEI and HCTZ discontinued. -NPO after MN -continuous cardiac monitoring -continue on BB and statin -Aspirin 325mg daily HTN, now hypotensive on NTG -On metoprolol 50 mg twice a day, fosinopril 40 mg daily, hydrochlorothiazide 25 mg daily - all on hold at present -Hold antihypertensives for now secondary to low BP. -Continue to monitor BP and adjust treatment accordingly DM Diabetic neuropathy -hold home dose of Metformin -hold long acting insulin for now as patient NPO after MN -accucheck -ISS -Continue on gabapentin -A1c level pending Acute bronchitis, improving -Continue on Levaquin -Duonebs as needed Unsteady gait secondary to diabetic neuropathy -PT eval/tx - no PT needs at discharge Gout -Continue on Allopurinol - hold 2/2 ILAN GERD -PPI DVT prophylaxis -SCD/DAVID hose Discharge Planning Pending clinical workup and cardiology clearance Jemima Rollins Dec 05, 2017 13:34
[2017-12-05 17:00] LABS: HEMOGLOBIN A1C 6.9 % (4.3-6.0)
[2017-12-05 17:16] LABS: BILIRUBIN, URINE NEG (NEG); BLOOD, URINE NEG (NEG); GLUCOSE,URINE 300 mg/dL (NEG); KETONE, URINE NEG (NEG); NITRITE,URINE NEG (NEG); SQUAMOUS EPITHELIAL CELL URINE 2 /hpf (0-5); URINE COLOR YELLOW (YELLW/STRAW); URINE LEUKOCYTE ESTERASE NEG (NEG)
[2017-12-06 00:03] VITALS: PULSE 67
[2017-12-06 03:54] VITALS: BP 130/62; PULSE 76; RESP 18; O2SAT 98
[2017-12-06 04:09] VITALS: PULSE 64
[2017-12-06 06:18] LABS: BICARBONATE 21.5 MEQ/L (21.0-32.0); CALCIUM 8.9 MG/DL (8.5-10.1); CREATININE 1.43 MG/DL (0.60-1.30)
[2017-12-06 07:00] VITALS: PULSE 87
--- NOTE | 2017-12-06 07:57 | HHI.PR ---
Subjective Remarks Follow up for chest pain with abnormal nuclear stress test. The patient reports feeling well this morning. Denies any chest pain or shortness of breath, however does feel "gregg anxious" with some mild nausea. Denies any diaphoresis. Headache resolved after nitro discontinued. He has no other medical complaints at this time. Objective Vitals Vital Signs Date Time Temp Pulse Resp B/P (MAP) Pulse Ox O2 Delivery O2 Flow Rate FiO2 12/06/17 04:09 64 12/06/17 03:54 76 18 130/62 (84) 98 12/06/17 00:03 67 12/05/17 21:49 98 21 12/05/17 20:15 69 12/05/17 20:13 98.4 70 18 105/62 (76) 95 12/05/17 15:33 98.4 84 20 103/61 (75) 95 12/05/17 11:22 98.0 72 19 105/55 (72) 94 12/05/17 08:52 97.7 67 19 123/60 (81) 98 12/05/17 08:00 85 I/O 12/05/17 12/05/17 12/05/17 12/06/17 12/06/17 12/06/17 07:00 15:00 23:00 07:00 15:00 23:00 Intake Total 250 ml 3400 ml Balance 250 ml 3400 ml Intake Oral 250 ml 750 ml IV Total 2650 ml Result Diagram: 12/03/17 1140 12/06/17 0515 Imaging Last Impressions Renal Ultrasound 12/05/17 0000 Signed Impressions: Service Date/Time: Tuesday, December 05, 2017 11:34 - CONCLUSION: No obstruction or other acute abnormality demonstrated. Benign cyst on the left. Derrick Shane MD Myocardial Perfusion Scan Nuc Med 12/04/17 0000 Signed Impressions: Service Date/Time: Monday, December 04, 2017 13:59 - CONCLUSION: 1. Reversible stress-induced perfusion abnormality involving the inferior wall. 2. No evidence of fixed perfusion abnormalities. 3. Well-preserved left ventricular function and ejection fraction. RISK CATEGORY: Low (<1%% Annual Mortality Rate) Sarkis Crooks MD Chest X-Ray 12/03/17 1127 Signed Impressions: Service Date/Time: Sunday, December 03, 2017 11:41 - CONCLUSION: No acute disease. There is no evidence of pneumonia. Emile Nichole MD Objective Remarks GENERAL: Well-nourished, well-developed pleasant middle aged male patient in [facility]. SKIN: Warm and dry. No rash. HEENT: Normocephalic. Atraumatic.Pupils equal and round. Mucous membranes pink and moist. CARDIOVASCULAR: Regular rate and rhythm. No murmur appreciated. RESPIRATORY: No accessory muscle use. Clear to auscultation. Breath sounds equal bilaterally. GASTROINTESTINAL: Abdomen soft, non-tender, nondistended. Normoactive bowel sounds x4. MUSCULOSKELETAL: No obvious deformities. Extremities without clubbing, cyanosis , or edema. NEUROLOGICAL: Awake and alert. No obvious cranial nerve deficits. Motor grossly within normal limits. Normal speech. PSYCHIATRIC: Appropriate mood and affect; insight and judgment normal. Procedures 12/06 - Going for heart catheterization today Medications and IVs Current Medications Medications (Trade) Dose Ordered Sig/Epifanio Route Start Time Stop Time Status Last Admin (NS Flush) 2 ml UNSCH PRN IVF 12/03/17 11:30 (NS Flush) 2 ml BID IV FLUSH 12/03/17 21:00 12/05/17 09:00 (Tylenol) 500 mg Q4H PRN PO 12/03/17 17:15 (Zofran Inj) 4 mg Q6H PRN IV PUSH 12/03/17 17:15 12/04/17 11:54 (Nitrostat Sl) 0.4 mg Q5M PRN SL 12/03/17 17:15 (Aspirin) 325 mg DAILY PO 12/04/17 09:00 12/05/17 08:59 (Levaquin) 500 mg DAILY PO 12/04/17 09:00 12/05/17 08:59 (Robitussin Ac 200-20 Mg/10 ml Liq) 10 ml Q6H PRN PO 12/03/17 17:15 (Albuterol Neb) 2.5 mg Q2HR NEB PRN NEB 12/03/17 17:15 12/04/17 12:10 (Zyloprim) 300 mg SuMoTuThFrSa@0900 PO 12/04/17 09:00 Future Hold 12/05/17 09:07 (Pravachol) 40 mg BID PO 12/03/17 21:00 12/05/17 22:50 (Lopressor) 50 mg BID PO 12/03/17 21:00 Future Hold 12/03/17 22:30 (D50w (Vial) Inj) 50 ml UNSCH PRN IV PUSH 12/03/17 17:15 (Glucagon Inj) 1 mg UNSCH PRN OTHER 12/03/17 17:15 (NovoLOG SUPPLEMENTAL SCALE) 1 ACHS SLIDING SCALE SQ 12/03/17 21:00 12/05/17 22:50 (Protonix) 40 mg DAILY PO 12/03/17 19:00 12/05/17 08:59 (Neurontin) 600 mg BID PO 12/05/17 21:00 A/P Assessment and Plan 67 yo male with DM, GERD, Gout, admitted with complaints of chest pain and shortness of breath. Acute kidney injury: Creatinine increased from to 1.3 to 2.12 overnight. Suspect dehydration and acute injury from HCTZ/JAME. -Renal U/S with no obstruction or any other acute abnormality; benign renal cyst on the left -UA unremarkable. -Avoid nephrotoxic agents. Hold home dose of HCTZ, ACEI and Allopurinol for now. -Give IV fluid hydration -Repeat BMP today shows much improvement with Cr 1.43 -Continue hydration Chest pain: atypical. -troponins negative x 3 and EKG without acute ST changes -Nuclear Stress Test 12/04 showed reversible stress-induced perfusion abnormality involving the inferior wall -Cardiology consulted, cardiac cath initially delayed due to ILAN, now plans to proceed with cath today 12/06 -NPO for now -continuous cardiac monitoring -continue on BB, statin, Aspirin 325mg daily HTN: with transient hypotension on NTG -On metoprolol 50 mg bid, fosinopril 40 mg daily, hydrochlorothiazide 25 mg daily - holding JAME/HCTZ -BP improved, will restart BB -Continue to monitor BP and adjust treatment accordingly DM with Diabetic neuropathy: chronic. HgbA1c 6.9. -hold home dose of Metformin with ILAN -hold long acting insulin for now as patient NPO -Monitor accuchecks and cover with SSI -Continue on gabapentin Acute bronchitis, improving: lungs clear on exam -Continue on Levaquin -Duonebs as needed Unsteady gait secondary to diabetic neuropathy -PT eval/tx - no PT needs at discharge Gout: chronic, no acute flare -Holding Allopurinol secondary to ILAN GERD: chronic -continue PPI DVT prophylaxis -SCD/DAVID hose Discharge Planning Going for heart catheterization today. Further disposition to follow. Hilary Stoll PA-C Dec 06, 2017 7:57 am
[2017-12-06] MEDS: ASPIRIN 325 MG TAB PO SCH (07:58)
[2017-12-06] MEDS: INSULIN ASPART SUPPLEMENTAL SCALE SQ SCH (08:00)
[2017-12-06 08:06] VITALS: O2SAT 98
[2017-12-06] MEDS: LEVOFLOXACIN 500 MG TAB PO SCH (08:09)
[2017-12-06] MEDS: GABAPENTIN 300 MG CAP PO SCH (08:09)
[2017-12-06] MEDS: PRAVASTATIN SOD 40 MG TAB PO SCH (08:10)
[2017-12-06] MEDS: PANTOPRAZOLE SOD 40 MG DELAYED RELEASE TAB PO SCH (08:10)
[2017-12-06 08:35] VITALS: BP 162/81; PULSE 98; RESP 20; TEMP 97.5; O2SAT 94
--- NOTE | 2017-12-06 08:44 | PD.CARD.PN ---
Subjective Subjective Remarks reports feeling anxious. denies chest discomfort or sob overnight Objective Medications Current Medications Medications (Trade) Dose Ordered Sig/Epifanio Route Start Time Stop Time Status Last Admin (NS Flush) 2 ml UNSCH PRN IVF 12/03/17 11:30 (NS Flush) 2 ml BID IV FLUSH 12/03/17 21:00 12/05/17 09:00 (Tylenol) 500 mg Q4H PRN PO 12/03/17 17:15 (Zofran Inj) 4 mg Q6H PRN IV PUSH 12/03/17 17:15 12/04/17 11:54 (Nitrostat Sl) 0.4 mg Q5M PRN SL 12/03/17 17:15 (Aspirin) 325 mg DAILY PO 12/04/17 09:00 12/06/17 07:58 (Levaquin) 500 mg DAILY PO 12/04/17 09:00 12/05/17 08:59 (Robitussin Ac 200-20 Mg/10 ml Liq) 10 ml Q6H PRN PO 12/03/17 17:15 (Albuterol Neb) 2.5 mg Q2HR NEB PRN NEB 12/03/17 17:15 12/04/17 12:10 (Zyloprim) 300 mg SuMoTuThFrSa@0900 PO 12/04/17 09:00 Future Hold 12/05/17 09:07 (Pravachol) 40 mg BID PO 12/03/17 21:00 12/05/17 22:50 (Lopressor) 50 mg BID PO 12/03/17 21:00 Future hold 12/03/17 22:30 (D50w (Vial) Inj) 50 ml UNSCH PRN IV PUSH 12/03/17 17:15 (Glucagon Inj) 1 mg UNSCH PRN OTHER 12/03/17 17:15 (NovoLOG SUPPLEMENTAL SCALE) 1 ACHS SLIDING SCALE SQ 12/03/17 21:00 12/05/17 22:50 (Protonix) 40 mg DAILY PO 12/03/17 19:00 12/05/17 08:59 (Neurontin) 600 mg BID PO 12/05/17 21:00 Vital Signs / I&O Vital Signs Date Time Temp Pulse Resp B/P (MAP) Pulse Ox O2 Delivery O2 Flow Rate FiO2 12/06/17 08:35 97.5 98 20 162/81 (108) 94 12/06/17 07:00 87 12/06/17 04:09 64 12/06/17 03:54 76 18 130/62 (84) 98 12/06/17 00:03 67 12/05/17 21:49 98 21 12/05/17 20:15 69 12/05/17 20:13 98.4 70 18 105/62 (76) 95 12/05/17 15:33 98.4 84 20 103/61 (75) 95 12/05/17 11:22 98.0 72 19 105/55 (72) 94 12/05/17 08:52 97.7 67 19 123/60 (81) 98 I/O 12/05/17 12/05/17 12/05/17 12/06/17 12/06/17 12/06/17 07:00 15:00 23:00 07:00 15:00 23:00 Intake Total 250 ml 3900 ml Balance 250 ml 3900 ml Intake Oral 250 ml 1250 ml IV Total 2650 ml # Voids 1 Physical Exam GENERAL: SKIN: Warm and dry. HEAD: Atraumatic. Normocephalic. EYES: Pupils equal and round. No scleral icterus. ENT: No nasal bleeding or discharge. NECK: Trachea midline. No JVD. CARDIOVASCULAR: Regular rate and rhythm. no murmurs RESPIRATORY: No accessory muscle use. Clear to auscultation. Breath sounds equal bilaterally. GASTROINTESTINAL: Abdomen soft, non-tender, nondistended. MUSCULOSKELETAL: Extremities without clubbing, cyanosis, or edema. No obvious deformities. NEUROLOGICAL: Awake and alert. No obvious cranial nerve deficits. Normal speech. PSYCHIATRIC: Appropriate mood and affect; insight and judgment normal. Laboratory Laboratory Tests Test 12/05/17 16:48 12/06/17 05:15 Urine Color YELLOW Urine Turbidity CLEAR Urine pH 5.0 Urine Specific [place] 1.011 Urine Protein NEG mg/dL Urine Glucose (UA) 300 mg/dL Urine Ketones NEG mg/dL Urine Occult Blood NEG Urine Nitrite NEG Urine Bilirubin NEG Urine Urobilinogen LESS THAN 2.0 MG/DL Urine Leukocyte Esterase NEG Urine RBC 1 /hpf Urine WBC 2 /hpf Urine Squamous Epithelial Cells 2 /hpf Microscopic Urinalysis Comment CULT NOT INDICATED Blood Urea Nitrogen 31 MG/DL Creatinine 1.43 MG/DL Random Glucose 163 MG/DL Calcium Level 8.9 MG/DL Sodium Level 136 MEQ/L Potassium Level 3.7 MEQ/L Chloride Level 104 MEQ/L Carbon Dioxide Level 21.5 MEQ/L Anion Gap 11 MEQ/L Estimat Glomerular Filtration Rate 49 ML/MIN Assessment and Plan Problem List: (1) Atypical angina ICD Codes: I20.8 - Other forms of angina pectoris Assessment and Plan 67 yo WM with diabetes and no prior cardiac history who presented with atypical chest pain; stress testing showed small-moderate sized inferior wall defect. atypical chest pain- abnormal stress test. will plan for left heart catheterization today creatinine improved after IVF keep npo Kathya Patel Dec 06, 2017 08:44
[2017-12-06] MEDS ORDERED: HEPARIN-NS/PF FLUSH BAG 2,000 ML IV FLUSH ONE (09:20)
[2017-12-06] MEDS ORDERED: fentaNYL CITRATE 250 MCG/5 ML AMP ONE (09:23)
[2017-12-06] MEDS ORDERED: NITROGLYCERIN INJ 5 ML ONE (09:23)
[2017-12-06] MEDS ORDERED: MIDAZOLAM HCL 2 MG/2 ML VIAL ONE (09:23)
[2017-12-06] MEDS ORDERED: LIDOCAINE HCL 1% PF 30 ML VIAL ONE (09:34)
[2017-12-06] MEDS ORDERED: HEPARIN SODIUM - IV 10,000 UNITS/10 ML VIAL ONE (09:35)
[2017-12-06] MEDS ORDERED: SODIUM CHLOR 0.9% 1000 ML INJ 1,000 ML IV SCH (10:12)
--- NOTE | 2017-12-06 10:15 | CATHPROC ---
[employer] HIS Report Study Information Study Number Admission Scheduled Start Study Start [id number] Dec 03 2017 3:45PM 12/06/2017 Dec 06 2017 9:19AM [place] [facility] Cardiac Catheterization Admit Source Facility Department Emergency department [facility] - Labor Standards Director Physician and Clinical Staff Initial Fly Webb Fire Boat Engineer Katelyn Alfredo,SHAMA Recorder Kimberly Ramos,RT(R) Scrub Heide HugginsRT(R) (BS) Procedures Performed Procedure Location (Site) Vessel Name Coronary Angiograms LCA Left Coronary Coronary Angiograms RCA Right Coronary L Heart Cath Wire insertion Radial (right) Radial Art. Equipment Time General Laborer Description Size Mfg Part Number Used/Scraped TRANSDUCER, TRUWAVE [id number] 09:57 ASHBY PLASCENCIA * Used W/STOCKCOCK *[id number] 09:57 [employer] PACK, CCL CUSTOM * Used *[id number] 09:57 [employer] SUPPORT, ARTERIAL ADULT [id number] *[id number] Used [id number] 09:57 Twitch PACER PEN, SKIN DUAL W/ RULER * Used *[id number] 09:59 [employer] JL 3.5 DXTERITY CATHETER FR 5 Used *[id number] 09:26 [employer] JR 5.0 DXTERITY CATHETER fr 5 [id number] Used 09:40 [employer] JR 5.0 DXTERITY CATHETER fr 5 [id number] Used BAND, RADIAL COMPRESSION TR [id number] 10:05 [employer] 29CM Used LARGE 29 *[id number] SHEATH, FR6 RADIAL PRELUDE 09:57 [employer] FR 6 [id number] Used EASE 11CM [id number] 09:57 [employer] WIRE, EXCHANGE 260CM 3MMJ 260CM Used *[id number] 09:57 [employer] OMNIPAQUE, 350 MG, 150ML 150ML [id number] Used [id number] 09:57 [employer],WARM AIR CCL * Used *[id number] Equipment Model, Serial, Lot Number and Expiration Data Description Model Number Serial Number Lot Number Expiration Date JR 5.0 DXTERITY CATHETER [id number] 03-10-2020 JR 5.0 DXTERITY CATHETER [id number] 03-10-2020 History: Current Medications Medication Dosage/Unit Route Frequency Last Date/Time Taken Statins (any) LOPRESSOR ASA HCTZ History: Allergies Allergy Reaction amoxicillin Penicillins Rash History: Risk Factors Family History of Hypertension Dyslipidemia Previous MS Previous Heart Failure Premature CAD Yes Yes No No No Prior Valve Prior PCI Prior CABG Surgery No No No Cerebrovascular Peripheral Artery Chronic Lung On Dialysis Diabetes Diabetes Therapy Disease Disease Disease No No No No Yes Oral History: Symptoms/Diagnosis Selection Items Chest pain History: Stress Tests Stress or Imaging Studies Performed Yes Standard Exercise Stress Test No Stress Echo No Stress Test SPECT Stress Test SPECT Result Stress Test SPECT Ischemia Risk/Extent Yes Positive Intermediate Stress Test CMR No Cardiac CTA Coronary Calcium Score No No History: Other Disease Selection Items HTN History: Other Current Smoker Method Quit Packs a Day Years Used Pack Years No Cigarettes 36 Years Ago 3 15 45 Labs Hgb (g/dl) Hct (%) WBC (l/cumm) Platelets (thousands) 11.60-17.00 35.00-51.00 4.00-11.00 150.00-450.00 15.6 45 7.9 204 Glucose (mg/dl) BUN (mg/dl) Creatinine (mg/dl) BUN:Creatinine (1:x) 74.00-106.00 7.00-18.00 0.50-1.30 10.00-20.00 163 31 1.4 22.1 Na (meq/l) K (meq/l) 136.00-145.00 3.50-5.10 136 3.7 Troponin I (ng/ml) CPK (u/l) CPK-MB (ng/ML) 0.02-0.05 26.00-308.00 0.50-3.60 0.02 147 2.7 Medication Medication Total Dose (Bolus/Oral) Medication Total Dosage/Unit 1% XYLOCAINE 20 mL FENTANYL 50 mcg HEPARIN 5000 units RADIAL COCKTAIL 5 mL (Bolus) VERSED 1 mg Medications (Bolus/Oral) Medication Time Given Dosage/Unit Administered By Reason VERSED 12/06/2017 9:51:41 AM 1 mg Patient arrived on 1 mg VERSED via Peripheral IV. FENTANYL 12/06/2017 9:52:47 AM 50 mcg Katelyn Alfredo 50 mcg FENTANYL given in lab by Katelyn Alfredo RN in Left Forearm via Peripheral IV. 1% XYLOCAINE 12/06/2017 9:55:26 AM 20 mL Fly Aguilera 20 mL 1% XYLOCAINE given in lab by Fly Aguilera in Right Radial via Subcutaneous. HEPARIN 12/06/2017 9:57:27 AM 5000 units Katelyn Alfredo 5000 units HEPARIN given in lab by Katelyn Alfredo, RN via Peripheral IV. RADIAL COCKTAIL 12/06/2017 9:57:38 AM 5 mL (Bolus) Fly Aguilera 5 mL (Bolus) RADIAL COCKTAIL given in lab by Fly Aguilera via Radial. Using [Solution Name]. nitro only 200 Medication (Drip) Medication Time Given Dosage/Unit Concentration/Unit Diluent (ml) Solution IV Solutions 12/06/2017 9:26:27 AM 0 mL (IV) 500 NaCl .9 Patient arrived on IV Solutions in Right Antecubital via Peripheral IV. Pump/Drip Flow = 20 ml/hr usi ng NaCl .9. Initial Case Assessment Cardiovascular HR Rhythm NIBP Chest Pain 95 reg 136/81 0 Edema Present Skin color Skin None Normal Warm Circulatory - Right Pulses Dorsalis Pedis Femoral Radial 1 1 3 Scale (0,1,2,3,4,d) Scale (0,1,2,3,4,d) Circulatory - Lower Extremities Color Lower Right Normal Neurological State Oriented to time-place- Alert Moves all extremities person Respiration - General Respiration Rate SpO2 (%) (B/min) 21 92 Final Case Assessment Cardiovascular HR Rhythm NIBP Chest Pain 100 reg 130/80 0 Edema Present Skin color Skin None Normal Warm Circulatory - Right Pulses Dorsalis Pedis Femoral Radial 1 1 3 Scale (0,1,2,3,4,d) Scale (0,1,2,3,4,d) Circulatory - Lower Extremities Color Lower Right Normal Neurological State Oriented to time-place- Alert Moves all extremities person Respiration - General Respiration Rate SpO2 (%) (B/min) 5 93 Chronological Log Time Study Chronological Log 9:22:09 Patient arrived via Bed. 9:22:14 Patient Name, D.O.B, / Armband Verified By R.N. 9:22:17 Consent signed by the physician and the patient and verified by the Labor Standards Director staff. 9:26:20 Pre-op and post- op instructions given; patient acknowledges understanding of instructions. 9:26:21 Verbal Stimulation=2 Physical Stimulation=2 Airway=2 Respiration=2 TOTAL=8. (0=absent, 1=li mited, 2=present) 9:26:22 Presedation assessment performed by Labor Standards Director RN. 9:26:23 Darrons test performed on the right radial and ulnar artery. 9:26:23 Immediate Presedation assesment performed by physician. 9:26:24 Patient has been NPO for More than 6Hrs. 9:26:24 Skin Breakdown-none 9:26:25 Patient Warmer Placed on the Table. 9::25 Elizabeth Prominences Protected 9:26:27 A # 20 IV was noted in the Antecubital (right). Grade = 0 9:26:27 Patient arrived on IV Solutions in Right Antecubital via Peripheral IV. Pump/Drip Flow = 20 ml/hr using NaCl .9. 9:26:28 History and physical on the chart or being dictated. 9:28:16 Reference ECG taken Vitals capture started with the following parameters, Patient=Adult, Interval=5 min, Initial Pr rrhppn=549 mmHg, 9:28:37 Deflation Rate=5 mmHg, Cuff placed on left arm 9:29:12 HR=97 bpm, EXUM=391/83 mmhg, SpO2=94.0 %, Resp=17 B/min, Pain=0, Ciera=10, Dudley=2 9:34:13 HR=97 bpm, IWKC=031/81 mmhg, SpO2=90.0 %, Resp=10 B/min, Pain=0, Ciera=10, Dudley=2 Assessment: Initial Case, HR=95 BPM, Rhythm=reg, WIDP=146/81 mmhg, Chest Pain=0, Edema=None, Co jocy=Normal, Skin = Warm Right Pulses: Anthony Ped=1, Femoral=1, Radial=3 9:36:59 Lower Right Extremities: Color=Normal Neurological: State=Alert, Ox3, PARSONS Respiration: Resp=21 B/min, SpO2=92 % 9:37:47 Right Radial and groin(s) prepped with 2% chlorhexidine, and draped after a 3 min. waiting t mika. 9:39:14 HR=97 bpm, RFKH=170/80 mmhg, SpO2=92.0 %, Resp=10 B/min, Pain=0, Ciera=10, Dudley=2 9:44:13 HR=97 bpm, MXNI=495/81 mmhg, SpO2=92.0 %, Resp=8 B/min, Pain=0, Ciera=10, Dudley=2 9:45:25 new iv started in left forearm by sean bertrand RN 9:46:23 Pressure channel 1 zeroed. 9:46:32 MD texted 9:49:14 HR=93 bpm, SDCX=699/78 mmhg, SpO2=93.0 %, Resp=8 B/min, Pain=0, Ciera=10, Dudley=2 9:51:41 Patient arrived on 1 mg VERSED via Peripheral IV. 9:52:47 50 mcg FENTANYL given in lab by Katelyn Alfredo, SHAMA in Left Forearm via Peripheral IV. 9:52:53 MD arrived. 9:54:16 HR=90 bpm, BNCO=736/80 mmhg, Resp=17 B/min, Pain=0, Ciera=10, Dudley=2 Time Out. Correct patient, correct procedure, correct physician, power injector not loaded with contrast with surgical 9:54:46 team present. Time Out Concurred by MD and individual staff in procedure. 9:55:17 Case Start 9:55:19 Verbal Stimulation=2 Physical Stimulation=2 Airway=2 Respiration=2 TOTAL=8. (0=absent, 1=espinoza ited, 2=present) 9:55:26 20 mL 1% XYLOCAINE given in lab by Fly Aguilera in Right Radial via Subcutaneous. 9:56:42 Access site was Radial Artery. 9:56:48 A wire was inserted via Radial (right). A SHEATH, FR6 RADIAL PRELUDE EASE 11CM FR 6 was advanced into the Radial (right) using the Perc utaneous 9:57:02 technique. 9:57:27 5000 units HEPARIN given in lab by Katelyn Alfredo, SHAMA via Peripheral IV. 9:57:38 5 mL (Bolus) RADIAL COCKTAIL given in lab by Fly Aguilera via Radial. Using [Solution Name ]. nitro only 200 A JR 5.0 DXTERITY CATHETER fr 5 was advanced over a wire. OMNIPAQUE, 350 MG, 150ML 150ML was us ed for 9:58:10 injections. Recorded Pressure: LV, KA=877, Condition=Condition 1 9:58:55 (Left Ventricle) LV 132/2/4 Recorded Pressure: LV, Ao, YK=200, Condition=Condition 1 9:59:01 (Left Ventricle) LV 127/1/4, (Aorta) Ao 117/74/91 9:59:13 VB=018 bpm, ZTNM=100/79 mmhg, SpO2=92.0 %, Resp=9 B/min, Pain=0, Ciera=10, Dudley=2 Recorded Pressure: Ao, WP=231, Condition=Condition 1 9:59:37 (Aorta) Ao 117/75/92 9:59:50 The RCA was injected and visualized at various angles. OMNIPAQUE, 350 MG, 150ML 150ML used. After removing the current catheter a JL 3.5 DXTERITY CATHETER FR 5 was advanced over a WIRE, E XCHANGE 260CM 10:00:45 3MMJ 260CM. 10:02:12 A WIRE, EXCHANGE 260CM 3MMJ 260CM was inserted via Radial (right). 10:02:36 Wire removed 10:04:01 The LCA was injected and visualized at various angles. OMNIPAQUE, 350 MG, 150ML 150ML used . 10:04:14 MO=702 bpm, UKGO=901/80 mmhg, SpO2=92.0 %, Resp=0 B/min, Pain=0, Ciera=10, Dudley=2 10:04:33 Catheter was removed Assessment: Final Case, QL=357 BPM, Rhythm=reg, CBHB=032/80 mmhg, Chest Pain=0, Edema=None, Color=Normal, Skin = Warm Right Pulses: Anthony Ped=1, Femoral=1, Radial=3 10:04:44 Lower Right Extremities: Color=Normal Neurological: State=Alert, Ox3, [place]SON[place] Respiration: Resp=5 B/min, SpO2=93 % 10:05:59 Catheter(s) removed without difficulty Radial Compression Device Used. 13 mLs of air placed in BAND, RADIAL COMPRESSION TR LARGE 29 2 9CM. Affected 10:06:03 hand 93 % O2 saturation. 10:06:16 Case End 10:09:15 HR=94 bpm, LOMH=642/78 mmhg, SpO2=93.0 %, Resp=9 B/min, Pain=0, Ciera=10, Dudley=2 10:14:40 Sterile dressing applied to site 10:14:41 No case complications noted. 10:14:42 Cine recording checked. 10:14:44 Bedside Report will be given. 10:14:49 A Left Heart Cath was performed. 10:14:[facility] Clinical correlaton risk stratification. End Study - Contrast Media Used In Study Contrast Total Opened (mL) Total Used (mL) Total Wasted (mL) Omnipaque 35 35 0 End Study - Maximum Contrast Load Max Contrast Load (mL) 428.6 End Study - Radiation Exposure Fluoro Time (minutes) 3.0 End Study - Sheaths Sheaths Pulled By Sheath Hold Time (min) Heide Huggins End Study - Patient Disposition Complications Transferred To Outpatient Bed
[2017-12-06] MEDS ORDERED: ASPI-147 PO (10:17)
[2017-12-06] MEDS ORDERED: LEVA500T33 PO (10:17)
--- NOTE | 2017-12-06 10:18 | HHI.DCPOC ---
Discharge Care Plan Diagnosis: (1) Atypical angina (2) ILAN (acute kidney injury) Goals to Promote Your Health * To prevent worsening of your condition and complications * To maintain your health at the optimal level Directions to Meet Your Goals Take your medications as prescribed Follow your dietary instruction Follow activity as directed Keep your appointments as scheduled Take your immunizations and boosters as scheduled If your symptoms worsen call your PCP, if no PCP go to Urgent Care Center or Emergency Room Smoking is Dangerous to Your Health. Avoid second hand smoke Call the 24-hour hour crisis hotline for domestic abuse at Hilary Stoll PA-C Dec 06, 2017 10:18 am
--- NOTE | 2017-12-06 10:46 | MA ---
cc: Fly Aguilera MD DATE: 12/06/2017 INDICATION: Chest pain, intermediate risk stress test. PROCEDURES PERFORMED: 1. Fluoroscopy with interpretation. 2. Coronary angiography. 3. Left heart catheterization. METHOD: The risks, benefits and alternatives discussed with the patient. The patient understood and consented to the procedure. DESCRIPTION OF PROCEDURE: The patient was brought into catheterization lab, placed on the catheterization table. The right wrist and prepped and draped in a sterile fashion. The right wrist was anesthetized with 2% lidocaine. The right radial artery was cannulated and a 6-Wallisian 7 cm sheath was placed without difficulty. LEFT HEART CATHETERIZATION: Intraventricular hemodynamics measured at 127/1 mmHg. CORONARY ANGIOGRAPHY: 1. Left main coronary artery is angiographically normal. 2. Left anterior descending coronary artery has mild luminal irregularities. 3. Left circumflex coronary artery has mild luminal irregularities. 4. Right coronary artery is a dominant vessel giving rise to a posterior descending branch. Right coronary has minor luminal irregularities. CONCLUSIONS: 1. Mild nonobstructive coronary artery disease. 2. Normal left-sided filling pressure. PLAN: Patient's symptoms do not appear to be cardiac in origin given the mild nonobstructive disease. Recommend medical management. Followup with primary care physician. Fly Aguilera MD ROWAN/DL , 10:26 AM , 10:46 AM
--- NOTE | 2017-12-07 22:41 | HHI.DS ---
Discharge Summary Admission Date Dec 03, 2017 at 15:45 Discharge Date: Dec 06, 2017 Admitting Diagnosis CP R/O RI (1) ILAN (acute kidney injury) ICD Code: N17.9 - Acute kidney failure, unspecified (2) Atypical angina ICD Code: I20.8 - Other forms of angina pectoris Procedures 12/06 - cardiac catheterization by Dr. Aguilera - nonobstructive coronary artery disease Brief History - From Admission 67 year old male with long standing history of type II diabetes and diabetic neuropathy presents to ER for further evaluation of dyspnea and flu like symptoms. Onset one week ago. Seen and evaluated by his PCP on Tuesday and tested negative for the flu. Endorses productive cough with green sputum. Tuesday developed dyspnea and epigastric discomfort, described as "a gas bubble." Came to ER for further evaluation and was going to be discharge home with antibiotics and guaifenesin this afternoon, before developing epigastric discomfort, dyspnea, and became diaphoresis therefore ER MD recommended admission to [facility]. Patient endorses intermittent epigastric pain and dyspnea since Tuesday. Location epigastric area. Characterized as ingestion or "gas bubble." Reports "feels like if I could belch I would feel better." Associated symptoms of dyspnea. No nausea, vomiting, or diaphoresis. Duration 5 minutes of less. Denies ever having chest pain or pressure. No known precipitating. Took Zantac yesterday. Zantac relieved symptoms, allowing him to eat. CBC/BMP: 12/03/17 1140 12/06/17 0515 Significant Findings Laboratory Tests Test 12/05/17 05:01 12/05/17 16:48 12/06/17 05:15 Blood Urea Nitrogen 35 MG/DL (7-18) 31 MG/DL (7-18) Creatinine 2.12 MG/DL (0.60-1.30) 1.43 MG/DL (0.60-1.30) Random Glucose 146 MG/DL (74-106) 163 MG/DL (74-106) Sodium Level 134 MEQ/L (136-145) Estimat Glomerular Filtration Rate 31 ML/MIN (>89) 49 ML/MIN (>89) Urine Glucose (UA) 300 mg/dL (NEG) Imaging Last Impressions Renal Ultrasound 12/05/17 0000 Signed Impressions: Service Date/Time: Tuesday, December 05, 2017 11:34 - CONCLUSION: No obstruction or other acute abnormality demonstrated. Benign cyst on the left. Derrick Shane MD Myocardial Perfusion Scan Nuc Med 12/04/17 0000 Signed Impressions: Service Date/Time: Monday, December 04, 2017 13:59 - CONCLUSION: 1. Reversible stress-induced perfusion abnormality involving the inferior wall. 2. No evidence of fixed perfusion abnormalities. 3. Well-preserved left ventricular function and ejection fraction. RISK CATEGORY: Low (<1%% Annual Mortality Rate) Sarkis Crooks MD Chest X-Ray 12/03/17 1127 Signed Impressions: Service Date/Time: Sunday, December 03, 2017 11:41 - CONCLUSION: No acute disease. There is no evidence of pneumonia. Emile Nichole MD PE at Discharge GENERAL: Well-nourished, well-developed pleasant middle aged male patient in [facility]. SKIN: Warm and dry. No rash. HEENT: Normocephalic. Atraumatic.Pupils equal and round. Mucous membranes pink and moist. CARDIOVASCULAR: Regular rate and rhythm. No murmur appreciated. RESPIRATORY: No accessory muscle use. Clear to auscultation. Breath sounds equal bilaterally. GASTROINTESTINAL: Abdomen soft, non-tender, nondistended. Normoactive bowel sounds x4. MUSCULOSKELETAL: No obvious deformities. Extremities without clubbing, cyanosis , or edema. NEUROLOGICAL: Awake and alert. No obvious cranial nerve deficits. Motor grossly within normal limits. Normal speech. PSYCHIATRIC: Appropriate mood and affect; insight and judgment normal. Hospital Course 67 yo male with DM, GERD, Gout, admitted with complaints of chest pain and shortness of breath. Acute kidney injury: Creatinine increased from to 1.3 to 2.12 overnight. Suspect dehydration and acute injury from HCTZ/JAME. Renal U/S with no obstruction or any other acute abnormality; benign renal cyst on the left. UA unremarkable. Avoided nephrotoxic agents. Held home dose of HCTZ, ACEI and Allopurinol for now. Given IV fluid hydration. Repeat BMP today shows much improvement with Cr 1.43. Continue hydration after discharge. Stopped HCTZ at discharge. Chest pain: atypical. Troponins negative x 3 and EKG without acute ST changes. Nuclear Stress Test 12/04 showed reversible stress-induced perfusion abnormality involving the inferior wall. Cardiology consulted, cardiac cath initially delayed due to ILAN, then proceed the next day on 12/06 as kidney function improved. Dr. Aguilera performed cardiac cath 12/06 which showed nonobstructive CAD and he was cleared for discharge by cardiology. Continued on baby aspirin at discharge along with statin and BB. HTN: with transient hypotension on NTG. On metoprolol 50 mg bid, fosinopril 40 mg daily, hydrochlorothiazide 25 mg daily - held JAME/HCTZ. BP improved, restarted BB. Renal function improved, discharged on BB and JAME, discontinued HCTZ. DM with Diabetic neuropathy: chronic. HgbA1c 6.9. Held home dose of Metformin with ILAN. Held long acting insulin as patient NPO for procedure. Monitored accuchecks and covered with SSI. Continue on gabapentin. Stable. Acute bronchitis, improving: lungs clear on exam. Continued on Levaquin for 3 more days (total 5 days treatment). Duonebs as needed. Much improved. Unsteady gait secondary to diabetic neuropathy. PT eval/tx - no PT needs at discharge Gout: chronic, no acute flare. Holding Allopurinol secondary to ILAN GERD: chronic. continued PPI Pt Condition on Discharge: Stable Discharge Disposition: Discharge Home Discharge Time: > 30 minutes Discharge Instructions DIET: Follow Instructions for: Heart Healthy Diet, Diabetic Diet Activities you can perform: Regular-No Restrictions Follow up Referrals: Cardiology - 2 Weeks with Fly Aguilera MD PCP Follow-up - 1 Week with Amrit Mcfarland MD New Orders: BASIC METABOLIC PROF - 1 Week New Medications: Aspirin DR (Ecotrin Low Strength) 81 Mg Tabdr 81 MG PO DAILY for Prevent Blood Clot, #30 TAB 0 Refills Levofloxacin (Levaquin) 500 Mg Tablet 500 MG PO DAILY for bronchitis for 3 Days, #3 TAB Continued Medications: Allopurinol (Allopurinol) 300 Mg Tab 300 MG PO SuMoTuThFr for Gout, #30 TAB 0 Refills Take 1 tablet (300mg) daily on Tuesday,Tuesday,Tuesday,,Tuesday and Tuesday Allopurinol (Allopurinol) 300 Mg Tab 150 MG PO TUESDAY for Gout, #30 TAB 0 Refills Dapagliflozin (Farxiga) 10 Mg Tab 10 MG PO DAILY for Blood Sugar Management, #30 TAB 0 Refills Fosinopril (Fosinopril) 40 Mg Tab 40 MG PO DAILY, #30 TAB 0 Refills Guaifenesin-Codeine Liq (Guaifenesin AC Liq) 100-10 Mg/5 Ml Syrp 10 ML PO Q6H PRN for COUGH, #180 ML 0 Refills Insulin Glargine Inj (Lantus Solostar Pen Inj) 300 Unit/3 Ml Pen 50 UNITS SQ BID for Blood Sugar Management, PEN 0 Refills IN THE AM & HS Liraglutide Inj (Victoza Inj) 18 Mg/3 Ml Pen 1.8 MG SQ DAILY, #1 PEN 0 Refills Lovastatin (Lovastatin) 40 Mg Tab 40 MG PO BID for Cholesterol Management, #30 TAB 0 Refills Metformin (Glucophage) 1,000 Mg Tab 1000 MG PO BIDPC for Blood Sugar Management, #60 TAB 0 Refills Metoprolol Tartrate (Metoprolol Tartrate) 50 Mg Tab 50 MG PO BID, #60 TAB 0 Refills Discontinued Medications: Hydrochlorothiazide (Hydrochlorothiazide) 25 Mg Tab 25 MG PO DAILY, #30 TAB 0 Refills Hilary Stoll PA-C Dec 07, 2017 10:41 pm
== END 2017-12-06 15:05 | disposition home or self-care (01) ==
LOC: NEPE 11:04 → NEDA 15:45 → NEPFCDU 19:18 → HCIS 12-06 09:27
PROVIDERS: ADMIT Internal Medicine; ATTEND Internal Medicine
DX: I25.119 Atherosclerotic heart disease of native coronary artery with unspecified angina pectoris (principal); N17.9 Acute kidney failure, unspecified; I10 Essential (primary) hypertension; E11.40 Type 2 diabetes mellitus with diabetic neuropathy, unspecified; J20.9 Acute bronchitis, unspecified; K21.9 Gastro-esophageal reflux disease without esophagitis; I95.9 Hypotension, unspecified; R26.81 Unsteadiness on feet; R11.0 Nausea; R10.13 Epigastric pain; R61 Generalized hyperhidrosis; M1A.9XX0 Chronic gout, unspecified, without tophus (tophi); Z79.84 Long term (current) use of oral hypoglycemic drugs; Z79.4 Long term (current) use of insulin; Z87.891 Personal history of nicotine dependence
CPT/HCPCS: 71045; 76775; 78452; 80048; 80053; 81001; 82550; 82552; 82948; 83036; 83880; 84443; 84484; 85025; 85610; 85730; 87040; 93005; 93017; 93458; 94664; 96361; 96372; 96374; 96375; 96376; 97161; 99152; 99285; A9502; C1769; C1893; G0378; G8987; G8988; J1644; J1815; J2060; J2250; J2270; J2405; J2785; J3010; J7030; J7613; Q9967